=== PATIENT | male | born 1945 | race Caucasian/White ===

== ENCOUNTER → 2019-11-15 | Outpatient (CLI) | payer OTHER | END | disposition home or self-care (01) | LOC: SHCH 09:24 | PROVIDERS: ATTEND Internal Medicine Cardiovascular Disease | DX: I10 Essential (primary) hypertension (principal); R94.31 Abnormal electrocardiogram [ECG] [EKG] | CPT/HCPCS: 93306; 93356 ==

== ENCOUNTER → 2019-11-19 | Outpatient (CLI) | payer OTHER ==
[~2019-11-19] MED LIST: REGADENOSON 0.4 MG/5 ML PF SYG IVP SCH
== END | disposition home or self-care (01) ==
LOC: SHCH 08:07 → EDUNIT# 08:20
PROVIDERS: ATTEND Internal Medicine Cardiovascular Disease
DX: I21.09 ST elevation (STEMI) myocardial infarction involving other coronary artery of anterior wall (principal); I21.19 ST elevation (STEMI) myocardial infarction involving other coronary artery of inferior wall; I10 Essential (primary) hypertension
CPT/HCPCS: 78452; 93017; 96374; A9500 ×2; J2785

== ENCOUNTER → 2019-12-02 | Outpatient (CLI) | payer OTHER ==
[~2019-12-02] MED LIST changes: +IOHEXOL-350 50ML VIAL IV ONE; -REGADENOSON 0.4 MG/5 ML PF SYG IVP SCH
== END | disposition home or self-care (01) ==
LOC: RAH 08:34
PROVIDERS: ATTEND Internal Medicine Cardiovascular Disease
DX: D35.01 Benign neoplasm of right adrenal gland (principal); J90 Pleural effusion, not elsewhere classified; I70.90 Unspecified atherosclerosis; R91.8 Other nonspecific abnormal finding of lung field
CPT/HCPCS: 71260; Q9967

== ENCOUNTER → 2022-09-07 | Outpatient (CLI) | payer OTHER ==
[2022-09-07 15:05] LABS: BASOPHILS % (AUTO) 0.6 % (0.0-5.0); EOSINOPHILS % (AUTO) 3.1 % (0.0-8.0); HEMATOCRIT 36.1 % (42-54); LYMPHOCYTES % (AUTO) 26.8 % (21.0-51.0); MEAN CORPUSCULAR HEMOGLOBIN 32.8 pg (27.0-33.0); MEAN CORPUSCULAR VOLUME 99.4 fL (79-99); NEUTROPHILS % (AUTO) 57.2 % (40.0-77.0); PLATELET COUNT (AUTO) 252 K/uL (130-400); RED BLOOD CELL COUNT(AUTO) 3.63 MIL/uL (4.50-6.20); RED CELL DISTRIBUTION WIDTH 13.6 % (11.0-15.5); WHITE BLOOD COUNT (AUTO) 6.8 K/uL (4.8-10.8)
[2022-09-07 15:26] LABS: B-TYPE NATRIURETIC PEPTIDE 417 pg/mL (0-100)
[2022-09-07 15:30] LABS: ALBUMIN 3.7 g/dL (3.5-5.0); CREATININE 1.1 mg/dL (0.5-1.5); MAGNESIUM 1.8 mg/dL (1.80-2.40); T4 (THYROXINE) 9.1 ug/dL (4.7-13.3); THYROID STIMULATING HORMONE 2.72 uIU/mL (0.36-3.74); TOTAL PROTEIN, SERUM 7.7 g/dL (6.0-8.3)
== END | disposition home or self-care (01) ==
LOC: LAB 14:38
PROVIDERS: ATTEND Physician Assistant
DX: I10 Essential (primary) hypertension (principal)
CPT/HCPCS: 36415; 80053; 83735; 83880; 84436; 84443; 85025

== ENCOUNTER → 2022-09-20 | Outpatient (CLI) | payer OTHER | END | disposition home or self-care (01) | LOC: RAH 13:19 | PROVIDERS: ATTEND Internal Medicine Cardiovascular Disease | DX: I42.0 Dilated cardiomyopathy (principal) | CPT/HCPCS: 93306 ==

== ENCOUNTER → 2023-05-03 | Outpatient (CLI) | payer OTHER | END | disposition home or self-care (01) | LOC: SHCH 09:45 | PROVIDERS: ATTEND Internal Medicine Cardiovascular Disease | DX: I87.2 Venous insufficiency (chronic) (peripheral) (principal) | CPT/HCPCS: 93970 ==

== ENCOUNTER → 2023-06-09 | Outpatient (CLI) | payer OTHER ==
[2023-06-09 12:22] LABS: CREATININE 1.9 mg/dL (0.5-1.5); MAGNESIUM 1.5 mg/dL (1.80-2.40); POTASSIUM 3.3 mmol/L (3.5-5.1)
== END | disposition home or self-care (01) ==
LOC: LAB 09:00
PROVIDERS: ATTEND Physician Assistant
DX: I48.20 Chronic atrial fibrillation, unspecified (principal); R60.9 Edema, unspecified; I34.0 Nonrheumatic mitral (valve) insufficiency
CPT/HCPCS: 36415; 80048; 83735

== ENCOUNTER → 2023-09-07 | Outpatient (CLI) | payer OTHER ==
[2023-09-07 12:13] LABS: CREATININE 1.5 mg/dL (0.5-1.5); MAGNESIUM 1.8 mg/dL (1.80-2.40); POTASSIUM 4.3 mmol/L (3.5-5.1)
== END | disposition home or self-care (01) ==
LOC: LAB 08:55
PROVIDERS: ATTEND Physician Assistant
DX: I48.20 Chronic atrial fibrillation, unspecified (principal); I42.0 Dilated cardiomyopathy
CPT/HCPCS: 36415; 80048; 83735

== ENCOUNTER → 2024-02-23 | Outpatient (CLI) | payer OTHER ==
[2024-02-23 14:42] LABS: BASOPHILS # (AUTO) 0.04 K/uL (0.00-0.20); BASOPHILS % (AUTO) 0.7 % (0.0-5.0); EOSINOPHILS # (AUTO) 0.16 K/uL (0.00-0.70); EOSINOPHILS % (AUTO) 2.8 % (0.0-8.0); HEMATOCRIT 34.8 % (42-54); IMMATURE GRANULOCYTE ABSOLUTE 0.02 K/uL (0-1); LYMPHOCYTES # (AUTO) 1.6 K/uL (1.0-4.8); LYMPHOCYTES % (AUTO) 27.1 % (21.0-51.0); MEAN CORPUSCULAR HEMOGLOBIN 34.7 pg (27.0-33.0); MEAN CORPUSCULAR HGB CONC 33.6 g/dL (32.0-36.0); MEAN CORPUSCULAR VOLUME 103.3 fL (79-99); MONOCYTES # (AUTO) 0.7 K/uL (0.1-1.0); MONOCYTES % (AUTO) 12.4 % (3.0-13.0); NEUTROPHILS # (AUTO) 3.3 K/uL (1.8-7.7); NEUTROPHILS % (AUTO) 56.7 % (40.0-77.0); PLATELET COUNT (AUTO) 270 K/uL (130-400); RED BLOOD CELL COUNT(AUTO) 3.37 MIL/uL (4.50-6.20); RED CELL DISTRIBUTION WIDTH 14.2 % (11.0-15.5); WHITE BLOOD COUNT (AUTO) 5.8 K/uL (4.8-10.8)
[2024-02-23 14:52] LABS: CREATININE 1.9 mg/dL (0.5-1.3); MAGNESIUM 1.6 mg/dL (1.80-2.40); POTASSIUM 3.8 mmol/L (3.5-5.1)
== END | disposition home or self-care (01) ==
LOC: LAB 08:59
PROVIDERS: ATTEND Physician Assistant
DX: I48.20 Chronic atrial fibrillation, unspecified (principal)
CPT/HCPCS: 36415; 80048; 83735; 85025

== ENCOUNTER → 2024-03-18 | Outpatient (CLI) | payer OTHER ==
[2024-03-18 12:06] LABS: CREATININE 1.9 mg/dL (0.5-1.3); MAGNESIUM 1.8 mg/dL (1.80-2.40); POTASSIUM 3.9 mmol/L (3.5-5.1)
== END | disposition home or self-care (01) ==
LOC: LAB 08:50
PROVIDERS: ATTEND Physician Assistant
DX: I10 Essential (primary) hypertension (principal)
CPT/HCPCS: 36415; 80048; 83735

== ENCOUNTER → 2024-08-28 | Outpatient (CLI) | payer OTHER ==
[2024-08-28 12:44] LABS: ALBUMIN 3.5 g/dL (3.5-5.0); BILIRUBIN,TOTAL 0.7 mg/dL (0.2-1.0); CREATININE 1.6 mg/dL (0.5-1.3); MAGNESIUM 1.7 mg/dL (1.80-2.40); POTASSIUM 4.5 mmol/L (3.5-5.1); TOTAL PROTEIN, SERUM 7.1 g/dL (6.0-8.3)
== END | disposition home or self-care (01) ==
LOC: LAB 10:37
PROVIDERS: ATTEND Physician Assistant
DX: I25.5 Ischemic cardiomyopathy (principal)
CPT/HCPCS: 36415; 80053; 83735

== ENCOUNTER → 2024-09-26 | Outpatient (CLI) | payer OTHER | END | disposition home or self-care (01) | LOC: SHCH 08:45 | PROVIDERS: ATTEND Internal Medicine Cardiovascular Disease | DX: I25.10 Atherosclerotic heart disease of native coronary artery without angina pectoris (principal) | CPT/HCPCS: 93306 ==

== ENCOUNTER → 2024-10-11 | Outpatient (CLI) | payer OTHER ==
[2024-10-11] MEDS: REGADENOSON 0.4 MG/5 ML PF SYG IVP ONE (15:59)
--- NOTE | 2024-10-16 11:55 | HMCSR ---
APPROVED REPORT Height: 5 ft 10in Weight: 283 lbs TEST INDICATIONS ISCHEMIC CARDIOMYOPATHY The imaging protocol used to acquire images was Rest Tc-99m/stress Tc-99m 1 day Consent: The procedure was explained and understood by the patient. Informerd consent was witnessed Shira Schrader RN First, low dose rest was performed then high dose stress. RESTING DATA: The resting ekg shows: Atrial Fibrillation, RBBB, PVC's Rest SPECT myocardial perfusion imaging was performed in supine position 89 minutes following the int ravenous injection of 13.1 mCi of Tc-99 Sestamibi. Time of rest injection: 08:27: Date: 10/11/2024 Time of rest imagin:56: Date: 10/11/2024 PHARMACOLOGIC STRESS: Pharmacologic stress test was performed by injecting regadenoson 0.4 mg IV push followed by the intra venous injection of 31.3 mCi of Tc-99 Sestamibi. Time of stress injection: 10:31: Date: 10/11/2024 Time of stress imagin:27: Date: 10/11/2024 Heart Rate at time of stress injection: 61 bpm. Gated Stress SPECT was performed 116 minutes after stress injection. The images were gated to evaluate regional wall motion and calculate left ventricular ejection fracti on. STRESS DETAILS Reason for Termination: Infusion complete Stress Symptoms: No chest pain or symptoms Max HR Achieved: 64 bpm % of APMHR Achieved: 45 Max Blood Pressure: 104/60 mmHg Stress ECG: Atrial Fibrillation, RBBB, PVC's Study quality was fair. Lung uptake was Normal. Artifact: No artifact LEFT VENTRICLE The left ventricular ejection fraction was calculated to be 38%.TID = . IMPRESSION Abnormal pharmacologic nuclear stress test. Conclusion Abnormal Ei84p-Vbeflthqy stress test with an LVEF of 35%. Medium sized, moderate severity anterior perfusion defect suggestive of ischemia.
== END | disposition home or self-care (01) ==
LOC: SHCH 08:06
PROVIDERS: ATTEND Internal Medicine Cardiovascular Disease
DX: I49.3 Ventricular premature depolarization (principal); I45.10 Unspecified right bundle-branch block; I48.91 Unspecified atrial fibrillation; I25.5 Ischemic cardiomyopathy
CPT/HCPCS: 78452; 93017; J2785; A9500 ×2

== ENCOUNTER → 2024-11-11 | Outpatient (CLI) | payer OTHER ==
[2024-11-11 13:06] LABS: ALBUMIN 3.6 g/dL (3.5-5.0); BILIRUBIN,TOTAL 0.4 mg/dL (0.2-1.0); CREATININE 2.1 mg/dL (0.5-1.3); MAGNESIUM 1.8 mg/dL (1.80-2.40); POTASSIUM 4.1 mmol/L (3.5-5.1); TOTAL PROTEIN, SERUM 6.9 g/dL (6.0-8.3)
== END | disposition home or self-care (01) ==
LOC: LAB 10:50
PROVIDERS: ATTEND Physician Assistant
DX: I25.5 Ischemic cardiomyopathy (principal)
CPT/HCPCS: 36415; 80053; 83735

== ENCOUNTER 2024-12-31 05:42 | Day surgery (SDC) | payer OTHER ==
[2024-12-27 12:00] LABS: BASOPHILS # (AUTO) 0.03 K/uL (0.00-0.20); BASOPHILS % (AUTO) 0.6 % (0.0-5.0); EOSINOPHILS # (AUTO) 0.17 K/uL (0.00-0.70); EOSINOPHILS % (AUTO) 3.5 % (0.0-8.0); HEMATOCRIT 36.2 % (42-54); IMMATURE GRANULOCYTE ABSOLUTE 0.02 K/uL (0-1); MEAN CORPUSCULAR HEMOGLOBIN 34.1 pg (27.0-33.0); MEAN CORPUSCULAR HGB CONC 33.7 g/dL (32.0-36.0); MEAN CORPUSCULAR VOLUME 101.1 fL (79-99); MONOCYTES # (AUTO) 0.6 K/uL (0.1-1.0); MONOCYTES % (AUTO) 11.4 % (3.0-13.0); NEUTROPHILS # (AUTO) 3.1 K/uL (1.8-7.7); NEUTROPHILS % (AUTO) 64.1 % (40.0-77.0); PLATELET COUNT (AUTO) 219 K/uL (130-400); RED BLOOD CELL COUNT(AUTO) 3.58 MIL/uL (4.50-6.20); RED CELL DISTRIBUTION WIDTH 15.9 % (11.0-15.5); WHITE BLOOD COUNT (AUTO) 4.8 K/uL (4.8-10.8)
[2024-12-27 12:07] LABS: CREATININE 1.9 mg/dL (0.5-1.3); POTASSIUM 3.9 mmol/L (3.5-5.1)
[2024-12-27 12:09] LABS: INR 1.14 (0.85-1.15); PROTHROMBIN TIME 11.9 SEC (9.6-11.6)
[2024-12-27 12:10] LABS: PARTIAL THROMBOPLASTIN TIME 28.5 SEC (26.3-35.5)
--- NOTE | 2024-12-27 12:19 | HMCIMG ---
CHEST 1VW HISTORY: Preop COMPARISON: None FINDINGS: A frontal projection of the chest was obtained. No acute pulmonary infiltrates is seen. The heart is enlarged. Degenerative changes are seen. No evidence of aortic calcification is seen. IMPRESSION: 1. No acute pulmonary infiltrate is seen.
[2024-12-27 12:46] LABS: B-TYPE NATRIURETIC PEPTIDE 585 pg/mL (0-100)
--- NOTE | 2024-12-27 14:40 | EKG ---
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
[2024-12-30 10:17] VITALS: BP 147/71; PULSE 74; RESP 18; TEMP 97.1
--- NOTE | 2024-12-30 13:55 | NUR ---
REPORT REPORTED BNP/CREAT/BUN TO DR JAMISON NAVAS. ALSO INFORMED PT HELD ELIQUIS FOR 3 DAYS INSTEAD OF 2. OK TO PROCEED.
[2024-12-31] VITALS (9 sets, daily range): BP systolic 119–144; BP diastolic 60–81; PULSE 71–85; RESP 14–18; TEMP 97.4–97.7
[~2024-12-31] VITALS: Ht 175.3 cm; Wt 127.0 kg
[~2024-12-31 05:42] MED LIST changes: +ALLO100T PO; +APIX5TAB PO; +ATOR20TA65 PO; +BUME1TAB6 PO; +CELE-125 PO; +FERR-72 PO; -IOHEXOL-350 50ML VIAL IV ONE; +LEVO88CA4 PO; +MAGN400T40 PO; +METO2.5T2 PO; +METO25TA6 PO; +SACU1TAB PO
[2024-12-31] MEDS ORDERED: HEParin-NS 1,000 UNIT/500 ML 1,000 ML IV ONE (07:15)
[2024-12-31] MEDS ORDERED: NITROGLYCERIN 50MG VIAL ONE (07:15)
[2024-12-31] MEDS ORDERED: HEParin 10,000 UNIT/10ML (1,000 UNIT/ML) VIAL ONE ×2 (07:15→08:03)
[2024-12-31] MEDS ORDERED: LIDOCAINE HCL 400MG/20ML VIAL ONE (07:15)
[2024-12-31] MEDS ORDERED: IOHEXOL 350 MG/ML 100ML INFUS..BTL IV ONE ×2 (07:15→08:34)
[2024-12-31] MEDS ORDERED: VERAPAMIL HCL 2.5 MG/ML VIAL ONE (07:20)
[2024-12-31] MEDS ORDERED: FENTanyl CITRate PF 50 MCG/1 ML 2ML VIAL ONE (07:31)
[2024-12-31] MEDS ORDERED: MIDAZOLAM HCL 1 MG/ML 2ML VIAL ONE ×2 (07:31→07:48)
[2024-12-31] MEDS: 0.9%NACL 1000ML 1,000 ML IV SCH (07:45)
[2024-12-31] MEDS ORDERED: cloPIDOgrel 300MG TAB ONE (08:05)
[2024-12-31] MEDS ORDERED: ASPIRIN 325MG EC TAB PO ONE (08:05)
[2024-12-31] MEDS ORDERED: HEParin-NS 1,000 UNIT/500 ML 500 ML IV ONE (08:34)
[2024-12-31] MEDS ORDERED: GLUCAGON 1MG KIT 1 MG ML IM PRN (09:00)
[2024-12-31] MEDS ORDERED: 0.9%NACL 1000ML 1,000 ML IV SCH (09:00)
[2024-12-31] MEDS ORDERED: ASPIRIN 81MG CHEW TAB PO SCH (09:00)
[2024-12-31] MEDS ORDERED: DEXTROSE 50%-WATER 50 ML DISP.SYRIN IV PRN (09:00)
[2024-12-31] MEDS ORDERED: cloPIDOgrel 75MG TAB PO SCH (09:00)
--- NOTE | 2024-12-31 09:12 | PRN ---
PROCEDURE REPORT DATE OF PROCEDURE: Dec 31, 2024 WET SANDER: [ Jamison wilkinson MD] PROCEDURE PERFORMED: Conscious sedation Selective left coronary artery angiogram Selective right coronary artery angiogram Left heart catheterization OCT of the LAD and left main Status post successful OCT guided PTCA/PCI of the proximal LAD x1 (3 x 15 mm najma point KRISTEN, post dilated to 3.5 mm) TR band 13 kaden over right radial artery INDICATION: Abnormal stress test DESCRIPTION OF PROCEDURE: After informed consent was obtained, the patient was prepped and draped in the usual sterile fashion. A 6 Mongolian arterial sheath was inserted in the right radial artery using ultrasound guidance with first pass wall puncture. The arterial sheath was aspirated and flushed. A 6 Mongolian JL 3.5 was then advanced to the ascending aorta over an exchange length J-tip guidewire, was aspirated and flushed, and was used for selective coronary angiograms in multiple obliquities. A JR-4 was advanced in a similar fashion to the ascending aorta over the J-tipped guidewire and was used for selective right coronary angiograms in multiple oblique views with findings as outlined below. The JR-4 catheter advanced into the LV and pressures were obtained with a pull-back across the aortic valve. Following review of all the angiographic images decision was made to intervene on patient's critical proximal LAD stenosis. We exchanged the diagnostic catheters for a six Mongolian XB three guide catheter which was used to select engage the left main coronary artery. [place] [address] units of IV heparin in addition to loading doses of aspirin and Plavix and falling therapeutic ACT we advanced a Prowater into the distal LAD under fluoroscopic guidance. We pre-dilated the proximal LAD using a three by 12 mm compliant balloon to nominal pressures. We then proceeded with OCT imaging of the LAD and left main to delineate lesion characteristic and sizing. We then deployed a 3 x 15 mm najma point drug-eluting stent within the prox segment to nominal pressures. We then post dilated this using a 3 x 15 mm noncompliant balloon to nominal pressures. We then further post dilated the proximal stent using a 3.5 x 8 mm noncompliant balloon to nominal pressures. We performed repeat OCT imaging but noted mild stent underexpansion proximally 20%. We removed the OCT catheter and further post dilated using the 3.5 x 8 mm NC balloon to 18 and 20 KADEN respectively. Final angiographic images revealed no dissections or perforations with caodaism of LUTHER three flow. All wires and catheters removed from the body and a A TR band was placed over right radial artery. FLUOROSCOPY TIME: 11.4 min LEFT HEART HEMODYNAMICS: LVEDP 4 mm Hg and no gradient Ao CORONARY ANGIOGRAM: LEFT MAIN: Patent and 0% stenosis. Gives rise to LCx and LAD. LEFT ANTERIOR DESCENDING: Large vessel giving rise to two Diagonal branches. There is 80-85% proximal LAD stenosis at the take off the first septal artery with LUTHER 2 flow. Diagonals were patent LEFT CIRCUMFLEX: Large, dominant and gives rise to two OM branches. 0% stenosis. RIGHT CORONARY ARTERY: Nondominant vessel giving rise to PDA and PL branches. 0% stenosis. HEMOSTASIS: TR band 12 kaden over right radial artery INTERVENTIONS: Status post successful OCT guided PTCA/PCI of the proximal LAD x1 (3 x 15 mm najma point KRISTEN, post dilated to 3.5 mm) COMPLICATIONS: None FINDINGS: Normal coronary anatomy and severe proximal LAD-obstructive CAD. ESTIMATED BLOOD LOSS: 5 cc RECOMMENDATIONS/INSTRUCTIONS: Aggressive risk factor modification. Patient require triple therapy (aspirin 81 mg/Plavix 75 mg/Eliquis) for a total of 2-4 weeks Falling 2-4 weeks of triple therapy we will discontinue aspirin and continue with dual therapy (Plavix 75 mg q.day/Eliquis 5 mg b.i.d.) for a total of six months Radial band precautions and follow up with Dr. Lutz in 1-2 weeks post discharge CONTRAST DELIVERED TO PATIENT (mL): 190cc JAMISON Barber MD, MD Dec 31, 2024 09:12
--- NOTE | 2024-12-31 12:20 | NUR ---
VAS BAND REMOVED AT THIS TIME DRESSED WITH STERILE GAUZE AND TEGADERM. SITE ASYMPTOMATIC
--- NOTE | 2024-12-31 12:50 | NUR ---
PT DISCHARGED STATED HIS RIDE SHOULD BE HERE SHORTLY. PT WHEELED TO LOBBY TO WAIT FOR RIDE.
== END 2024-12-31 13:00 | disposition home or self-care (01) ==
LOC: DAH 05:42
PROVIDERS: ATTEND Student in an Organized Health Care Education/Training Program
DX: R94.39 Abnormal result of other cardiovascular function study (principal); R06.02 Shortness of breath; I25.118 Atherosclerotic heart disease of native coronary artery with other forms of angina pectoris; I13.0 Hypertensive heart and chronic kidney disease with heart failure and stage 1 through stage 4 chronic kidney disease, or unspecified chronic kidney disease; E78.5 Hyperlipidemia, unspecified; I50.22 Chronic systolic (congestive) heart failure; E66.01 Morbid (severe) obesity due to excess calories; N18.30 Chronic kidney disease, stage 3 unspecified; I48.20 Chronic atrial fibrillation, unspecified; Z96.651 Presence of right artificial knee joint; Z79.01 Long term (current) use of anticoagulants; Z79.899 Other long term (current) drug therapy
CPT/HCPCS: 80048; 83880; 85025; 85610; 85730; 71045; 93005; 92978; 92979; 85347 ×2; 82948; 36415; 93458; C9600; C1769 ×2; C1725 ×3; C1894; A4649; C1887; C1874; J3010; J3490 ×3; J1644 ×4; J2250 ×2; Q9967; A4215; A6402; A4222; A4221; A4663; A4216; A6206; A4606; Q9965 ×2; A4223 ×3; 96360; 96361; 99156; 99157